=== PATIENT | female | born 1935 | race Caucasian/White ===

== ENCOUNTER 2018-10-19 09:37 | Observation (INO) | payer OTHER, BC ==
[2018-10-19 09:47] VITALS: BMI 24.0
[2018-10-19 10:46] LABS: BASO % 0.1 % (0-2.0); EOS % 0.3 % (0-4.5); HEMATOCRIT 35.4 % (32.4-45.2); HEMOGLOBIN 12.5 GM/dL (10.7-15.3); LYMPH % 11.4 % (8-40); MCH 29.9 pg (25.7-33.7); MCHC 35.4 g/dl (32.0-36.0); MEAN CELL VOLUME 84.4 fl (80-96); MEAN PLT VOLUME 7.1 fl (7.5-11.1); MONO % 3.9 % (3.8-10.2); NEUT % 84.3 % (42.8-82.8); PLATELET COUNT 293 K/MM3 (134-434); RBC 4.19 M/mm3 (3.60-5.2); RDW 15.8 % (11.6-15.6); WHITE BLOOD COUNT 11.3 K/mm3 (4.0-10.0)
[2018-10-19 11:10] LABS: INR 1.07 (0.83-1.09); PROTHROMBIN TIME (PATIENT) 12.6 SEC (9.7-13.0)
[2018-10-19] MEDS ORDERED: ACETAMINOPHEN 1000 MG/100 ML VIAL (NON FORMULARY) IVPB ONE (11:13)
[2018-10-19 11:17] LABS: ALBUMIN 4.6 g/dl (3.4-5.0); ALK PHOS 73 U/L (45-117); ANION GAP 9 MMOL/L (8-16); BILIRUBIN,TOTAL 0.4 mg/dL (0.2-1); BLOOD UREA NITROGEN 24 mg/dL (7-18); CALCIUM 9.1 mg/dL (8.5-10.1); CHLORIDE 104 mmol/L (98-107); CO2 25 mmol/L (21-32); CREATININE 1.2 mg/dL (0.55-1.3); GLUCOSE,RANDOM 106 mg/dL (74-106); MAGNESIUM 2.4 mg/dL (1.8-2.4); N-TERMINAL BNP 209.4 pg/ml (5-450); POTASSIUM 4.5 mmol/L (3.5-5.1); SGOT/AST 41 U/L (15-37); SGPT/ALT 47 U/L (13-61); SODIUM 137 mmol/L (136-145); TOT PROT 7.8 g/dl (6.4-8.2)
[2018-10-19] MEDS ORDERED: ACETAMINOPHEN INJECTION 100 ML IVPB ONE (11:22)
--- NOTE | 2018-10-19 11:25 | PDOC ---
History of Present Illness - General Chief Complaint: Shortness of Breath Stated Complaint: SOB, BLOOD PRESSURE PROBLEM Time Seen by Provider: 10/19/18 10:11 History Source: Patient Exam Limitations: No Limitations - History of Present Illness Initial Comments: 10/19/18 11:16 82-year-old female with history of hypertension, high cholesterol, vestibular migraines historically causing episodes of headache and dizziness followed by outpatient ENT presents now from ENT office for episode of shortness of breath and vomiting in the setting of 3 days of presumed vestibular migraine. Patient had acute onset of dizziness with left-sided headache 2 days ago while at lunch , no other visual/speech/focal motor symptoms. She went home to rest and presumed it was her typical vestibular migraine, went to see her ENT doctor today but while there had an episode of difficulty breathing with vomiting. Patient believes this was caused by an exacerbation of her dizziness, she had no associated chest pain or palpitations, at baseline she has no exercise limitations and has had no recent respiratory complaints or cough/fever/chills. Last stress test was several years ago and was reportedly unremarkable. No smoking history. Does not typically take any medications acutely for her migraines, they usually resolve over a 2-3 day time period. Past History - Past Medical History Allergies/Adverse Reactions: Allergies Allergy/AdvReac Type Severity Reaction Status Date / Time No Known Allergies Allergy Verified 10/19/18 09:43 Home Medications: Ambulatory Orders Amitriptyline HCl [Elavil -] 25 mg PO DAILY 10/19/18 Amlodipine Besylate/Valsartan [Amlodipine-Valsartan 5-160 mg] 1 each PO DAILY Betahistine HCl [Betahistine] 16 mg PO TID 10/19/18 Levothyroxine [Synthroid -] 50 mcg PO DAILY 10/19/18 Rosuvastatin [Crestor -] 5 mg PO HS 10/19/18 Spironolactone [Aldactone] 25 mg PO DAILY 10/19/18 Anemia: No Asthma: No Cancer: No Cardiac Disorders: No CVA: No COPD: No CHF: Yes Dementia: No Diabetes: No GI Disorders: Yes (PEPTIC ULCER) Disorders: No HTN: Yes Hypercholesterolemia: No Liver Disease: No Seizures: No Thyroid Disease: No - Surgical History Abdominal Surgery: No Appendectomy: Yes Cardiac Surgery: No Cholecystectomy: No Lung Surgery: No Neurologic Surgery: No Orthopedic Surgery: Yes ([id number]) - Immunization History Immunization Up to Date: Yes - Suicide/Smoking/Psychosocial Hx Smoking History: Never smoked Hx Alcohol Use: No Drug/Substance Use Hx: No Substance Use Type: None Review of Systems - Review of Systems Constitutional: No: Chills, Fever HEENTM: No: Recent change in vision Respiratory: Yes: Shortness of Breath. No: Cough Cardiac (ROS): No: Chest Pain, Palpitations, Syncope ABD/GI: Yes: Vomiting. No: Nausea Neurological: Yes: Headache, Dizziness. No: Paresthesia, Weakness All Other Systems: Reviewed and Negative *Physical Exam - Vital Signs Last Vital Signs Temp Pulse Resp BP Pulse Ox 97.5 F L 70 16 147/50 L 100 10/19/18 09:44 10/19/18 09:44 10/19/18 09:44 10/19/18 09:44 10/19/18 09:44 Moderate Sedation - Procedure Monitoring Vital Signs: Procedure Monitoring Vital Signs Temperature 97.5 F L 10/19/18 09:44 Pulse Rate 70 10/19/18 09:44 Respiratory Rate 16 10/19/18 09:44 Blood Pressure 147/50 L 10/19/18 09:44 O2 Sat by Pulse Oximetry (%) 100 10/19/18 09:44 Heart Score/ECG Review #1 ECG reviewed & interpreted by me at: 09:59 General ECG Interpretation: Sinus Rhythm (with PVC noted), Normal Rate (67), Normal Intervals (qtc 458), No acute ischemic changes ED Treatment Course - LABORATORY CBC & Chemistry Diagram: 10/19/18 10:30 10/19/18 10:30 - ADDITIONAL ORDERS Additional order review: Laboratory Results 10/19/18 10:30 PT with INR 12.60 INR 1.07 10/19/18 10:30 RBC 4.19 MCV 84.4 MCHC 35.4 RDW 15.8 H MPV 7.1 L Neutrophils % 84.3 H Lymphocytes % 11.4 Monocytes % 3.9 Eosinophils % 0.3 Basophils % 0.1 - RADIOLOGY Radiology Studies Ordered: Category Date Time Status HEAD CT WITHOUT CONTRAST [CT] Stat CT Scan 10/19/18 11:13 Ordered CHEST X-RAY PORTABLE* [RAD] Stat Radiology 10/19/18 10:11 Taken Medical Decision Making - Medical Decision Making 10/19/18 11:28 82-year-old female with history of vestibular migraines presents with similar symptoms over the last 2-3 days, now with superimposed episode of shortness of breath while at her ENT office. Question primary cardiopulmonary cause, question secondary symptoms from her dizziness. Given age and risk factors, will need cardiopulmonary workup Check CT head given prolongation of symptoms IV fluids and Tylenol for her dizziness and headache Likely admission, her PCP is Dr. Montenegro 10/19/18 13:32 Labs within normal limits, chest x-ray and CT head showed no acute pathology. Proceed with telemetry monitoring, Dr. Montenegro called. 10/19/18 13:[address] Montenegro, accepts patient for obs tele *DC/Admit/Observation/Transfer Diagnosis at time of Disposition: Vestibular migraine, Shortness of breath - Discharge Dispostion Condition at time of disposition: Fair - Referrals Referrals: Elver Montenegro MD [Primary Care Provider] - - Patient Instructions - Post Discharge Activity
--- NOTE | 2018-10-19 15:11 | HP ---
Admitting History and Physical - Admission Chief Complaint: 82 y.o F with vestibular migraines was sent to the ER by her ENT Dr Howard Estevez from [facility] due to respiratory distress and vomiting in his office. 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 No: Alzheimer's, Parkinson's, Seizure Cardiovascular: Yes: HTN, Hyperlipdemia. No: CAD, CHF Pulmonary: No: Asthma, Bronchitis, Cancer, COPD, O2 Dependent, Pneumonia, Previously Intubated, Pulmonary Embolus, Pulmonary Fibrosis, Sleep Apnea, Other Hepatobiliary: No: Cirrhosis, Cholelithiasis, Cholecystitis, Choledocholithiasis , Hepatitis A, Hepatitis B, Hepatitis C, Other Renal/: No: Renal Failure, Renal Inusuff, Cancer, Hematuria, Hemodialysis, Neurogenic Bladder, Renal Calculi, UTI, Other Reproductive: Yes: Postmenopausal Heme/Onc: No: Anemia, B12 Deficiency, Bleeding Disorder, Cancer, Current Chemotherapy, Current Radiation Therapy, Hemochromatosis, Hypercoaguable State, Myeloproliferative Synd, Sickle Cell Disease, Sickle Cell Trait, Thrombocytopenia, Other Infectious Disease: No: AIDS, C-Diff, Herpes Zoster, HIV, MRSA, STD's, Tuberculosis, VREF, Other Psych: No: Addictions, Anxiety, Bipolar, Depression, Panic, Psychosis, Schizophrenia, Other Endocrine: Yes: Hypothyroidism Dermatology: No: Basal Cell, Cellulitis, Eczema, Melanoma, Psoriasis, Squamous Cell, Other - Smoking History Smoking history: Never smoked - Alcohol/Substance Use Hx Alcohol Use: No Home Medications - Allergies Allergies/Adverse Reactions: Allergies Allergy/AdvReac Type Severity Reaction Status Date / Time No Known Allergies Allergy Verified 10/19/18 09:43 - Home Medications Home Medications: Ambulatory Orders Amitriptyline HCl [Elavil -] 25 mg PO DAILY 10/19/18 Amlodipine Besylate/Valsartan [Amlodipine-Valsartan 5-160 mg] 1 each PO DAILY Betahistine HCl [Betahistine] 16 mg PO TID 10/19/18 Levothyroxine [Synthroid -] 50 mcg PO DAILY 10/19/18 Rosuvastatin [Crestor -] 5 mg PO HS 10/19/18 Spironolactone [Aldactone] 25 mg PO DAILY 10/19/18 Family Disease History - Family Disease History Family History: Unremarkable Review of Systems - Review of Systems Constitutional: denies: Diaphoresis, Fever, Lethargy Eyes: denies: Blurred Vision, Double Vision, Eye Pain HENT: denies: Difficult Swallowing, Ear Discharge Neck: denies: Decreased ROM, Lumps, Pain on Movement Cardiovascular: denies: Chest Pain, Palpitations, Shortness of Breath Respiratory: denies: Cough, Exercise Intolerance, Hemoptysis Gastrointestinal: denies: Abdominal Pain, Bloating, Constipation Genitourinary: denies: Burning, Discharge, Dysuria Breasts: reports: No Symptoms Reported Musculoskeletal: denies: Back Pain, Crepitus, Decreased ROM Integumentary: denies: Blister, Bruising, Change in Color Neurological: denies: Change in LOC, Change in Speech Endocrine: denies: Excessive Sweating, Flushing Hematology/Lymphatic: denies: Easily Bruised, Excessive Bleeding Psychiatric: reports: No Symptoms Physical Examination Vital Signs: Vital Signs Temperature 97.5 F L 10/19/18 09:44 Pulse Rate 70 10/19/18 09:44 Respiratory Rate 16 10/19/18 09:44 Blood Pressure 147/50 L 10/19/18 09:44 O2 Sat by Pulse Oximetry (%) 100 10/19/18 09:44 Constitutional: Yes: No Distress, Calm, Thin Eyes: Yes: Conjunctiva Clear, EOM Intact HENT: Yes: Atraumatic, Normocephalic. No: Drooling, Epistaxis Neck: Yes: Supple, Trachea Midline. No: Decreased ROM, Lymphadenopathy Cardiovascular: Yes: Regular Rate and Rhythm, S1, S2. No: Bradycardia, Tachycardia Respiratory: Yes: Regular, CTA Bilaterally. No: Accessory Muscle Use Gastrointestinal: Yes: Normal Bowel Sounds, Soft. No: Abdomen, Obese, Ascites ...Rectal Exam: Yes: Deferred Renal/: Yes: Urethral Discharge. No: Anuria, Bladder Distention, CVA Tenderness - Left, Menses Present Extremities: No: Amputation, Calf Tenderness, Cold Edema: No Peripheral Pulses WNL: Yes Integumentary: Yes: WNL Neurological: Yes: Alert, Oriented. No: Aphasia, Asterixis, Ataxia, Dysarthria , Facial Droop, Lethargy, Pre-Existing Deficit, Seizure, Unresponsive ...Motor Strength: WNL Psychiatric: Yes: WNL Labs: CBC, BMP 10/19/18 10:30 10/19/18 10:30 Laboratory Results - last 24 hr 10/19/18 10/19/18 10/19/18 10:30 10:30 10:30 WBC 11.3 H RBC 4.19 Hgb 12.5 Hct 35.4 MCV 84.4 MCH 29.9 MCHC 35.4 RDW 15.8 H Plt Count 293 MPV 7.1 L Absolute Neuts (auto) 9.5 H Neutrophils % 84.3 H Lymphocytes % 11.4 Monocytes % 3.9 Eosinophils % 0.3 Basophils % 0.1 Nucleated RBC % 0 PT with INR 12.60 INR 1.07 Sodium 137 Potassium 4.5 Chloride 104 Carbon Dioxide 25 Anion Gap 9 BUN 24 H Creatinine 1.2 Creat Clearance w eGFR 43.01 Random Glucose 106 Calcium 9.1 Magnesium 2.4 Total Bilirubin 0.4 AST 41 H ALT 47 Alkaline Phosphatase 73 Creatine Kinase 339 H Creatine Kinase Index 1.3 CK-MB (CK-2) 4.5 H Troponin I < 0.02 B-Natriuretic Peptide 209.4 Total Protein 7.8 Albumin 4.6 Imaging - Results Chest X-ray: Report Reviewed Cat Scan: Report Reviewed (head ct volume loss.) EKG: Image Reviewed (SR with rare VPC) Problem List - Problems (1) Shortness of breath Assessment/Plan: R/O CT-serial enzymes, EST, cardiology consult. ECHO Tr I neg Code(s): R06.02 - SHORTNESS OF BREATH (2) Vestibular migraine Assessment/Plan: Continue patient Betahistine, Amitryptilline Code(s): G43.109 - MIGRAINE WITH AURA, NOT INTRACTABLE, W/O STATUS MIGRAINOSUS (3) HTN (hypertension) Assessment/Plan: Valsartran 160 QD Amlodipine 5 qd Spironolactone 25 QD Code(s): I10 - ESSENTIAL (PRIMARY) HYPERTENSION Qualifiers: Hypertension type: essential hypertension Qualified Code(s): I10 - Essential (primary) hypertension
--- NOTE | 2018-10-19 16:19 | EKG ---
Test Reason : Blood Pressure : / mmHG Vent. Rate : 067 BPM Atrial Rate : 067 BPM P-R Int : 128 ms QRS Dur : 074 ms QT Int : 434 ms P-R-T Axes : 055 053 044 degrees QTc Int : 458 ms POOR DATA QUALITY, INTERPRETATION MAY BE ADVERSELY AFFECTED SINUS RHYTHM WITH OCCASIONAL PREMATURE VENTRICULAR COMPLEXES CANNOT RULE OUT ANTERIOR INFARCT , AGE UNDETERMINED ABNORMAL ECG WHEN COMPARED WITH ECG OF 25-JUN-2005 02:03, PREMATURE VENTRICULAR COMPLEXES ARE NOW PRESENT ST NO LONGER DEPRESSED IN ANTERIOR LEADS T WAVE AMPLITUDE HAS DECREASED IN INFERIOR LEADS T WAVE AMPLITUDE HAS DECREASED IN ANTERIOR LEADS Confirmed by JOSE THEODORE MD ([id number]) on 10/19/2018 4:19:11 PM Referred By: Confirmed By:JOSE THEODORE MD
[2018-10-19] MEDS ORDERED: BETAHISTINE PO SCH (22:00)
[2018-10-19] MEDS ORDERED: ROSUVASTATIN CA 5 MG TABLET (FP) PO SCH (22:00)
[2018-10-20] MEDS ORDERED: LEVOTHYROXINE NA 50 MCG TABLET (FP) PO SCH (07:00)
[2018-10-20 07:22] LABS: BASO % 0.3 % (0-2.0); EOS % 1.1 % (0-4.5); HEMATOCRIT 34.4 % (32.4-45.2); HEMOGLOBIN 11.4 GM/dL (10.7-15.3); LYMPH % 29.8 % (8-40); MCH 28.3 pg (25.7-33.7); MCHC 33.2 g/dl (32.0-36.0); MEAN CELL VOLUME 85.3 fl (80-96); MEAN PLT VOLUME 7.4 fl (7.5-11.1); MONO % 9.5 % (3.8-10.2); NEUT % 59.3 % (42.8-82.8); PLATELET COUNT 268 K/MM3 (134-434); RBC 4.03 M/mm3 (3.60-5.2); RDW 15.6 % (11.6-15.6); WHITE BLOOD COUNT 6.3 K/mm3 (4.0-10.0)
--- NOTE | 2018-10-20 08:16 | PN ---
Progress Note (short form) - Note Progress Note: Comfortable overnight, ambulating in the room without difficulty, no significant MIRELES or SOB. No CP Vital Signs (72 hours) 10/19/18 10/19/18 10/19/18 09:44 18:30 21:00 Temperature 97.5 F L 98.0 F Pulse Rate 70 78 Pulse Rate [ 81 Apical] Respiratory 16 16 18 Rate Blood Pressure 147/50 L 168/80 Blood Pressure 185/58 H [Left Arm] O2 Sat by Pulse 100 99 97 Oximetry (%) 10/19/18 10/20/18 10/20/18 21:06 02:00 06:00 Temperature 98.2 F 98.2 F Pulse Rate 82 80 Pulse Rate [ 84 Apical] Respiratory 16 18 18 Rate Blood Pressure 147/71 137/70 Blood Pressure 170/82 [Left Arm] O2 Sat by Pulse 99 Oximetry (%) PE A&Ox3 Neck supple Lungs are clear Heart S1S2 regular, no RMG Abdomen soft, NT Ext-no CCE Laboratory Results - last 24 hr 10/19/18 10/19/18 10/19/18 10:30 10:30 10:30 WBC 11.3 H RBC 4.19 Hgb 12.5 Hct 35.4 MCV 84.4 MCH 29.9 MCHC 35.4 RDW 15.8 H Plt Count 293 MPV 7.1 L Absolute Neuts (auto) 9.5 H Neutrophils % 84.3 H Lymphocytes % 11.4 Monocytes % 3.9 Eosinophils % 0.3 Basophils % 0.1 Nucleated RBC % 0 PT with INR 12.60 INR 1.07 Sodium 137 Potassium 4.5 Chloride 104 Carbon Dioxide 25 Anion Gap 9 BUN 24 H Creatinine 1.2 Creat Clearance w eGFR 43.01 POC Glucometer Random Glucose 106 Calcium 9.1 Magnesium 2.4 Total Bilirubin 0.4 AST 41 H ALT 47 Alkaline Phosphatase 73 Creatine Kinase 339 H Creatine Kinase Index 1.3 CK-MB (CK-2) 4.5 H Troponin I < 0.02 B-Natriuretic Peptide 209.4 Total Protein 7.8 Albumin 4.6 10/19/18 10/20/18 10/20/18 16:20 05:20 06:14 WBC 6.3 RBC 4.03 Hgb 11.4 Hct 34.4 MCV 85.3 MCH 28.3 MCHC 33.2 RDW 15.6 Plt Count 268 MPV 7.4 L Absolute Neuts (auto) 3.8 Neutrophils % 59.3 D Lymphocytes % 29.8 D Monocytes % 9.5 D Eosinophils % 1.1 D Basophils % 0.3 Nucleated RBC % 0 PT with INR INR Sodium Potassium Chloride Carbon Dioxide Anion Gap BUN Creatinine Creat Clearance w eGFR POC Glucometer 86 Random Glucose Calcium Magnesium Total Bilirubin AST ALT Alkaline Phosphatase Creatine Kinase 256 H Creatine Kinase Index 1.7 CK-MB (CK-2) 4.4 H Troponin I < 0.02 B-Natriuretic Peptide Total Protein Albumin Imp Current Active Problems Problem Status Onset HTN (hypertension) Acute Shortness of breath Acute Vestibular migraine Acute Plan IF tr I # 2 neg can be D/c and f/u with her pigment supplier Dr Fabian Continue current meds. ENT f/u Problem List - Problems (1) Shortness of breath Code(s): R06.02 - SHORTNESS OF BREATH (2) Vestibular migraine Code(s): G43.109 - MIGRAINE WITH AURA, NOT INTRACTABLE, W/O STATUS MIGRAINOSUS (3) HTN (hypertension) Code(s): I10 - ESSENTIAL (PRIMARY) HYPERTENSION Qualifiers: Hypertension type: essential hypertension Qualified Code(s): I10 - Essential (primary) hypertension
--- NOTE | 2018-10-20 08:17 | DS ---
Physical Examination Vital Signs: Vital Signs Temperature 98.2 F 10/20/18 06:00 Pulse Rate 80 10/20/18 06:00 Respiratory Rate 18 10/20/18 06:00 Blood Pressure 137/70 10/20/18 06:00 O2 Sat by Pulse Oximetry (%) 99 10/19/18 21:06 Constitutional: Yes: No Distress, Calm Eyes: Yes: Conjunctiva Clear, EOM Intact HENT: Yes: Atraumatic, Normocephalic Neck: Yes: Supple, Trachea Midline Cardiovascular: Yes: Regular Rate and Rhythm, S1, S2. No: Bradycardia, Tachycardia Respiratory: Yes: Regular, CTA Bilaterally. No: Accessory Muscle Use Gastrointestinal: Yes: Normal Bowel Sounds, Soft. No: Abdomen, Obese ...Rectal Exam: Yes: Deferred Renal/: No: Anuria, Bladder Distention Musculoskeletal: No: Back Pain, Joint Stiffness Extremities: No: Amputation, Calf Tenderness, Cold, Cyanosis Edema: No Integumentary: Yes: WNL Neurological: Yes: Alert, Oriented. No: Aphasia, Ataxia, Confusion, Cran Nerves II-XII Intact, Seizure, Tremors, Unresponsive, Unsteady Gait ...Motor Strength: WNL Psychiatric: Yes: WNL Labs: CBC, BMP 10/20/18 05:20 10/19/18 10:30 Discharge Summary Reason For Visit: SOB, Vestibular migraine Current Active Problems HTN (hypertension) (Acute) Shortness of breath (Acute) Vestibular migraine (Acute) Condition: Fair - Instructions Referrals: Elver Montenegro MD [Primary Care Provider] - Disposition: HOME - Home Medications Comprehensive Discharge Medication List: Ambulatory Orders Amitriptyline HCl [Elavil -] 25 mg PO DAILY 10/19/18 Amlodipine Besylate/Valsartan [Amlodipine-Valsartan 5-160 mg] 1 each PO DAILY Betahistine HCl [Betahistine] 16 mg PO TID 10/19/18 Levothyroxine [Synthroid -] 50 mcg PO DAILY 10/19/18 Rosuvastatin [Crestor -] 5 mg PO HS 10/19/18 Spironolactone [Aldactone] 25 mg PO DAILY 10/19/18
[2018-10-20] MEDS ORDERED: VALSARTAN 160 MG TABLET (UD) PO SCH (10:00)
[2018-10-20] MEDS ORDERED: amLODIPine BESYLATE 5 MG TABLET (FP) PO SCH (10:00)
[2018-10-20] MEDS ORDERED: SPIRONOLACTONE 25 MG TABLET (FP) PO SCH (10:00)
[2018-10-20] MEDS ORDERED: AMITRIPTYLINE HCL 25 MG TABLET (FP) PO SCH (10:00)
[2018-10-20 10:08] VITALS: BP 134/60; PULSE 76; TEMP 98
--- NOTE | 2018-10-20 10:28 | ECHO ---
Version: 1 Name: LANA GALVAN Exam: Adult Echocardiogram Study Date: 10/20/2018, 8:31 AM Age: 82 Years MMode/2D Measurements & Calculations IVSd: 0.72 cm LVIDs: 2.35 cm LVIDd: 3.8 cm LVPWd: 0.97 cm Ao root diam: 2.8 cm LA dimension: 3.1 cm Doppler Measurements & Calculations MV E max jenaro: 82.5 cm/sec Med E/e': 11.2 MV A max jenaro: 112.5 cm/sec Med Peak E' Jenaro: 7.4 cm/sec MV E/A: 0.73 Lat E/e': 9.7 Lat Peak E' Jenaro: 8.5 cm/sec AI P1/2t: 458.8 msec TR max jenaro: 288.7 cm/sec TR max P.7 mmHg Procedure A two-dimensional transthoracic echocardiogram with color flow and Doppler was performed. Left Ventricle The left ventricular size, thickness and function are normal. The left ventricular ejection fraction is normal. E/A reversal consistent with but not diagnostic of poor LV compliance. The left ventricular wall motion is normal. Right Ventricle The right ventricle is normal in size and function. Atria Normal left and right atrial size and function. Mitral Valve There is mild mitral valve thickening. There is no mitral valve stenosis. There is mild mitral regur gitation. Tricuspid Valve There is mild tricuspid valve thickening. There is no tricuspid stenosis. There is severe tricuspid regurgitation. Right ventricular systolic pressure is elevated at 40-50mmHg. Aortic Valve The aortic valve is not well visualized. There is mild to moderate aortic valve thickening. There is mild to moderate aortic sclerosis.;. No hemodynamically significant valvular aortic stenosis. Mild to modera te aortic regurgitation. Pulmonic Valve The pulmonic valve is not well visualized. Great Vessels The aortic root is normal size. Pericardium/Pleura There is no pericardial effusion. Summary Statements The left ventricular size, thickness and function are normal The left ventricular ejection fraction is normal. Mild to moderate aortic regurgitation. There is severe tricuspid regurgitation. Right ventricular systolic pressure is elevated at 40-50mmHg. E/A reversal consistent with but not diagnostic of poor LV compliance The left ventricular wall motion is normal. There is mild mitral regurgitation. MD Beny Herrera 10/20/2018, 10:28 AM Ordering Physician: Elver Montenegro Referring Physician: Lukasz Huitron Performed By: Ashley Núñez
== END 2018-10-20 11:24 | disposition home or self-care (01) ==
LOC: JER 09:37 → JERBED 14:50 → J4W 21:26
PROVIDERS: ADMIT Internal Medicine; ATTEND Internal Medicine
PROC: 3E033NZ Introduction of Analgesics, Hypnotics, Sedatives into Peripheral Vein, Percutaneous Approach (ICD-10-PCS; principal; 2018-10-19)
DX: G43.109 Migraine with aura, not intractable, without status migrainosus (principal); R06.02 Shortness of breath; I10 Essential (primary) hypertension
CPT/HCPCS: 36415; 70450-TC; 71045-TC-FY; 80053; 82550; 82553; 82962; 83735; 83880; 84484; 85025; 85610; 93005; 93010; 93306-TC; 96374; 99283-25; G0378; J0131

== ENCOUNTER 2019-01-06 19:14 | Emergency (ER) | payer OTHER, BC ==
[2019-01-06 19:22] VITALS: BP 137/82; PULSE 91; TEMP 97.6; BMI 23.6
--- NOTE | 2019-01-06 20:16 | PDOC ---
History of Present Illness - General Chief Complaint: Injury Stated Complaint: FALL Time Seen by Provider: 01/06/19 19:58 - History of Present Illness Initial Comments: 01/06/19 20:15 83 yo F with h/o HTN who p/w left facial trauma s/p mechanical fall. Patient reports ambulating unassisted outside this evening ( 17:00), and sustaining fall while ambulating on pavement. Patient landed onto left side, left outstretched hand, and hit left sided eye. On ground for seconds, able to ambulate minutes after event. Denies LOC, neck, or back trauma. Denies AC. Does not recall last Tetatnus. Denies recurrent falls. Now with mild left sided headache, dull. Patient ambulates unassisted. Patient denies vision change, neck stiffness, palpitations, cough, wheezing, orthopena, PND, leg swelling/pain, N/V, F,C, CP, SOB, urinary complaints, hematuria, BPR, abdominal pain, diarrhea, constipation, lightheadedness, weakness, sensory changes. PMHx: as noted above ROS: as noted SHx: Denies Etoh, IVDA Allergies: NKDA Past History - Past Medical History Allergies/Adverse Reactions: Allergies Allergy/AdvReac Type Severity Reaction Status Date / Time No Known Allergies Allergy Verified 10/19/18 09:43 Home Medications: Ambulatory Orders Amitriptyline HCl [Elavil -] 25 mg PO DAILY 10/19/18 Amlodipine Besylate/Valsartan [Amlodipine-Valsartan 5-160 mg] 1 each PO DAILY Betahistine HCl [Betahistine] 16 mg PO TID 10/19/18 Levothyroxine [Synthroid -] 50 mcg PO DAILY 10/19/18 Rosuvastatin [Crestor -] 5 mg PO HS 10/19/18 Spironolactone [Aldactone -] 25 mg PO DAILY 10/19/18 Anemia: No Asthma: No Cancer: No Cardiac Disorders: No CVA: No COPD: No CHF: Yes Dementia: No Diabetes: No GI Disorders: Yes (PEPTIC ULCER) Disorders: No HTN: Yes Hypercholesterolemia: No Liver Disease: No Seizures: No Thyroid Disease: No - Surgical History Abdominal Surgery: No Appendectomy: Yes Cardiac Surgery: No Cholecystectomy: No Lung Surgery: No Neurologic Surgery: No Orthopedic Surgery: Yes ([id number]) - Immunization History Immunization Up to Date: Yes - Suicide/Smoking/Psychosocial Hx Smoking History: Never smoked Have you smoked in the past 12 months: No Information on smoking cessation initiated: No Hx Alcohol Use: No Drug/Substance Use Hx: No Substance Use Type: None Hx Substance Use Treatment: No Review of Systems - Review of Systems Comments:: 01/06/19 20:15 GENERAL/CONSTITUTIONAL: No fever or chills. No weakness. HEAD, EYES, EARS, NOSE AND THROAT: No change in vision. No ear pain or discharge. No sore throat. CARDIOVASCULAR: No chest pain or shortness of breath RESPIRATORY: No cough, wheezing, or hemoptysis. GASTROINTESTINAL: No nausea, vomiting, diarrhea or constipation. GENITOURINARY: No dysuria, frequency, or change in urination. MUSCULOSKELETAL: No joint or muscle swelling or pain. No neck or back pain. SKIN: No rash NEUROLOGIC: + headache. No vertigo, loss of consciousness, or change in strength /sensation. ENDOCRINE: No increased thirst. No abnormal weight change HEMATOLOGIC/LYMPHATIC: No anemia, easy bleeding, or history of blood clots. ALLERGIC/IMMUNOLOGIC: No hives or skin allergy. *Physical Exam - Vital Signs Last Vital Signs Temp Pulse Resp BP Pulse Ox 97.6 F 91 H 16 137/82 100 01/06/19 19:20 01/06/19 19:20 01/06/19 19:20 01/06/19 19:20 01/06/19 19:20 - Physical Exam Comments: 01/06/19 20:15 GENERAL: Awake, alert, and fully oriented, in no acute distress HEAD: No signs of trauma, normocephalic, atraumatic EYES: Left periorobital ecchymosis. + Left 2 cm superior lateral,laceration, superficial with absent subcutaneous or galea involvement. Absent foreign body or debris. PERRLA, EOMI, sclera anicteric, conjunctiva clear ENT:+ Left TM rupture, with absent hematympanum. Auricles normal inspection, hearing grossly normal, nares patent, oropharynx clear without exudates. Moist mucosa NECK: Normal ROM, supple, no lymphadenopathy, JVD, or masses LUNGS: No distress, speaks full sentences, clear to auscultation bilaterally HEART: Regular rate and rhythm, normal S1 and S2, no murmurs, rubs or gallops, peripheral pulses normal and equal bilaterally. ABDOMEN: Soft, nontender, normoactive bowel sounds. No guarding, no rebound. No masses EXTREMITIES : + left dorsal hand ecchymosis. Normal inspection, Normal range of motion, no edema. No clubbing or cyanosis. BACK: Neg c-spine ttp, or midline, paraspinal ttp. neg bony deformity, or stepoff. neg skin change. NEUROLOGICAL: Cranial nerves II through XII grossly intact. Normal speech, normal gait, no focal sensorimotor deficits SKIN: Warm, Dry, normal turgor, no rashes or lesions noted Moderate Sedation - Procedure Monitoring Vital Signs: Procedure Monitoring Vital Signs Temperature 97.6 F 01/06/19 19:20 Pulse Rate 91 H 01/06/19 19:20 Respiratory Rate 16 01/06/19 19:20 Blood Pressure 137/82 01/06/19 19:20 O2 Sat by Pulse Oximetry (%) 100 01/06/19 19:20 Procedures - Laceration/Wound Repair Left Lateral Eye Wound Length: to 2.5 cm Wound Explored: clean, no foreign body present Wound's Depth, Shape: superficial, linear Irrigated w/ Saline: Yes Betadine Prep: No Wound Debrided: minimal Wound Repaired With: Dermabond Layer Closure: No Sterile Dressing Applied: Yes Splint Applied: No Sling Applied: No Medical Decision Making - Medical Decision Making 01/06/19 21:00 83 yo F with h/o HTN, Menierres dz., who p/w left facial trauma, closed head injury s/p mechanical fall. Vitals wnl, AF, A&Ox3. No LOC. Physical exam notable for left periorobital ecchymosis. Denies vision change, neck stiffness, N/V, F,C, CP, SOB, urinary complaints, hematuria, BPR, abdominal pain, diarrhea, constipation, lightheadedness, weakness, sensory changes. CTH r/o hemorrhage, hematoma, skull fracture. No focal neuro deficits or evidence of increased ICP. CT facial bones to r/o fracture, orbital blowout. No evidence of cranial nerve entrapment, or prrseptal hemaotma on physical exam. C-spine neg per [facility]. Will reasses. Ed Course: 01/06/19 21:10 01/06/19 21:31 + lac repair to superficial left latreral wound. 01/06/19 21:35 EKG: NSR with PVC's, absent SISSY, STD. Normal interval duration and axis. Similar interval EKG (11/04) 01/06/19 22:07 CTH: Unremarkable Hand/Wrist LEFT RAD: Unremarkable on prelim interpretation in ED 01/06/19 22:36 CT FACIAL BONES: Unremarkable Patient stable for d/c with return precautions. *DC/Admit/Observation/Transfer Diagnosis at time of Disposition: Closed head injury without concussion Qualifiers: Encounter type: initial encounter Qualified Code(s): S09.90XA - Unspecified injury of head, initial encounter - Discharge Dispostion Condition at time of disposition: Stable Decision to Admit order: No - Referrals - Patient Instructions Printed Discharge Instructions: How to Prevent Falls Additional Instructions: Please return to the emergency department with any new or worsening symptoms or concerns. Please follow up with your primary care physician within 72 hours. - Post Discharge Activity - Attestations Physician Attestion: 01/06/19 20:16 I attest to the information provided in this note.
[2019-01-06] MEDS ORDERED: DIPHTH,PERTUSS(ACELL),TET 0.5 ML DISP.SYRIN IM ONE ×2 (20:55→20:58)
--- NOTE | 2019-01-06 22:46 | PDOC ---
Attending Attestation - Resident Resident Name: Kane Schroeder - ED Attending Attestation I have performed the following: I have examined & evaluated the patient, The case was reviewed & discussed with the resident, I agree w/resident's findings & plan, Exceptions are as noted - HPI HPI: 01/06/19 22:41 The patient is an 83-year-old female with a past medical history significant for HTN, HLD, Meniere's disease, and hypothyroidism presents to the emergency department after falling at home. The patient reports around 5:00 pm today, she was in her garden when she tripped and fell. The patient states she tried to grab onto a shrub for support but fell onto her face. Pt was able to brace herself with her L arm. Denies LOC. Pt denies any CP/SOB/palpitations, dizziness , nausea or vomiting. Pt now complains of mild throbbing pain in her L face. - Physicial Exam PE: 01/06/19 22:45 GENERAL: Awake, alert, and fully oriented, in no acute distress. HEAD: + laceration to L eyebrow, + L periorbital ecchymosis EYES: PERRLA, EOMI, sclera anicteric, conjunctiva clear ENT: Auricles normal inspection, hearing grossly normal, nares patent, oropharynx clear without exudates. Moist mucosa NECK: Nontender, no stepoffs, Normal ROM, supple, no lymphadenopathy, JVD, or masses LUNGS: Breath sounds equal, clear to auscultation bilaterally. No wheezes, and no crackles HEART: Regular rate and rhythm, normal S1 and S2, no murmurs, rubs or gallops ABDOMEN: Soft, nontender, normoactive bowel sounds. No guarding, no rebound. No masses EXTREMITIES: Normal range of motion, no edema. No clubbing or cyanosis. No cords, erythema, or tenderness NEUROLOGICAL: Cranial nerves II through XII intact. 5/5 strength and sensation in all extremities, Normal speech, normal gait, normal cerebellar function SKIN: Warm, Dry, normal turgor, no rashes or lesions noted. - Medical Decision Making 01/06/19 22:45 83 F with L facial injury after mechanical fall. - CT head/facial bones - XR L wrist - Lac repair - Tdap 01/06/19 22:46 CTs negative Lac repaired with dermabond Pt is well appearing, with normal vitals. Clinically stable for DC at this time. I discussed the physical exam findings, ancillary test results and final diagnoses with the patient. I answered all of the patient's questions. The patient was satisfied with the care received and felt comfortable with the discharge plan and treatment plan. The patient agrees to follow up with the primary care physician within 24-72 hours.
--- NOTE | 2019-01-07 23:50 | EKG ---
Test Reason : Blood Pressure : / mmHG Vent. Rate : 076 BPM Atrial Rate : 076 BPM P-R Int : 134 ms QRS Dur : 090 ms QT Int : 378 ms P-R-T Axes : 045 021 042 degrees QTc Int : 425 ms SINUS RHYTHM WITH OCCASIONAL PREMATURE VENTRICULAR COMPLEXES NONSPECIFIC ST ABNORMALITY ABNORMAL ECG WHEN COMPARED WITH ECG OF 19-OCT-2018 09:59, NON-SPECIFIC CHANGE IN ST SEGMENT IN INFERIOR LEADS Confirmed by BALTAZAR NICHOLS, ELIO ([id number]) on 01/07/2019 11:50:02 PM Referred By: Confirmed By:ELIO LEDESMA MD
== END 2019-01-06 22:55 | disposition home or self-care (01) ==
LOC: JER 19:14
PROC: 3E0234Z Introduction of Serum, Toxoid and Vaccine into Muscle, Percutaneous Approach (ICD-10-PCS; principal; 2019-01-06)
PROC: 0HQ1XZZ Repair Face Skin, External Approach (ICD-10-PCS; 2019-01-06)
DX: S05.42XA Penetrating wound of orbit with or without foreign body, left eye, initial encounter (principal); S05.12XA Contusion of eyeball and orbital tissues, left eye, initial encounter; W18.39XA Other fall on same level, initial encounter; Y93.01 Activity, walking, marching and hiking; Y92.480 Sidewalk as the place of occurrence of the external cause; Y99.8 Other external cause status; I11.0 Hypertensive heart disease with heart failure; I50.9 Heart failure, unspecified
CPT/HCPCS: 12011; 70450-TC; 70486-TC; 73110-TC-LT-FY; 73130-TC-LT-FY; 90471; 90715; 93005; 93010; 99282-25